=== PATIENT | female | born 1955 | race Caucasian/White ===

== ENCOUNTER 2023-09-17 07:57 | Outpatient (CLI) | payer OTHER | END 2023-09-17 08:10 | disposition home or self-care (01) | LOC: TOM 07:57 | PROVIDERS: ATTEND Internal Medicine Hematology & Oncology | DX: R10.30 Lower abdominal pain, unspecified (principal); E78.2 Mixed hyperlipidemia | CPT/HCPCS: 70460; 70491; 71260; 74177; Q9965 ==

== ENCOUNTER 2023-09-18 07:42 | Outpatient (CLI) | payer OTHER ==
[2023-09-18 09:47] LABS: HEMOGLOBIN 13.6 g/dL (12.0-15.00); MEAN CELL VOLUME 91.8 fL (80.00-100.00); MEAN CORPUSCULAR HEMOGLOBIN 31.3 pg (27.00-32.0); MEAN CORPUSCULAR HGB CONC 34.1 g/dl (32.0-36.0); PLATELET COUNT 151 K/uL (150-450); RED BLOOD COUNT 4.36 M/uL (4.00-6.00); RED CELL DISTRIBUTION WIDTH 12.6 % (11.5-14.5)
[2023-09-18 09:58] LABS: % SATURACION 31.3 % (15-50); ALBUMIN 3.9 gm/dL (3.4-5.0); BILIRUBIN TOTAL 1.02 mg/dL (0.3-1.2); CALCIUM 8.8 mg/dL (8.5-10.1); CREATININE SERUM 0.79 mg/dL (0.55-1.02); FERRITIN 91.8 NG/ML (8-252); GFR 72.16; GLOBULINA 3.7 G/DL (2.4-3.5); POTASSIUM 3.55 mEq/L (3.5-5.1); TOTAL PROTEIN 7.6 gm/dL (6.4-8.2)
[2023-09-18 11:05] LABS: FOLIC ACID > 20.00 ng/ml (4.78-20)
[2023-09-18 11:26] LABS: MANUAL PLATELET COUNT 258
[2023-09-18 11:27] LABS: PLATELET ESTIMATE NORMAL (NORMAL)
== END 2023-09-18 07:45 | disposition home or self-care (01) ==
LOC: LAB 07:42
PROVIDERS: ATTEND Internal Medicine Hematology & Oncology
DX: R79.9 Abnormal finding of blood chemistry, unspecified (principal); I10 Essential (primary) hypertension; R74.02 Elevation of levels of lactic acid dehydrogenase [LDH]; K76.89 Other specified diseases of liver; D47.2 Monoclonal gammopathy; C90.00 Multiple myeloma not having achieved remission; C50.919 Malignant neoplasm of unspecified site of unspecified female breast; R97.8 Other abnormal tumor markers; C25.9 Malignant neoplasm of pancreas, unspecified; C56.9 Malignant neoplasm of unspecified ovary; R97.1 Elevated cancer antigen 125 [CA 125]; R97.0 Elevated carcinoembryonic antigen [CEA]; R77.2 Abnormality of alphafetoprotein; C79.51 Secondary malignant neoplasm of bone; R10.30 Lower abdominal pain, unspecified; E78.2 Mixed hyperlipidemia

== ENCOUNTER 2023-10-02 08:11 | Outpatient (CLI) | payer OTHER | END 2023-10-02 08:12 | disposition home or self-care (01) | LOC: NUCLEAR 08:11 | PROVIDERS: ATTEND Internal Medicine Hematology & Oncology | DX: C79.51 Secondary malignant neoplasm of bone (principal); M89.9 Disorder of bone, unspecified; R10.30 Lower abdominal pain, unspecified; E78.2 Mixed hyperlipidemia; K57.30 Diverticulosis of large intestine without perforation or abscess without bleeding | CPT/HCPCS: 78815; A9552 ==